=== PATIENT | female | born 1985 | race Asian ===

== ENCOUNTER 2022-03-15 18:22 | Emergency (ER) | payer MEDICAID, OTHER ==
[~2022-03-15] VITALS: Ht 165.1 cm; Wt 54.5 kg
[2022-03-15] MEDS ORDERED: EPINEPHrine 1:1,000 [1 MG/ML] VIAL IM ONE (18:30)
[2022-03-15] MEDS ORDERED: MethylPREDNISolone SOD SUCC 125 MG/2 ML VIAL IVP ONE (18:30)
[2022-03-15] MEDS ORDERED: SODIUM CHLORIDE 0.9% 1,000 ML IV ONE (18:30)
[2022-03-15 18:46] LABS: BASOPHILS % (AUTO) 0.7 % (0.0-2.0); EOSINOPHILS % (AUTO) 3.8 % (1.0-6.0); HEMOGLOBIN 13.6 g/dL (12.0-16.0); LYMPHOCYTES # (AUTO) 2.5 K/uL (1.0-4.8); LYMPHOCYTES % (AUTO) 26.7 % (22.0-44.0); MEAN CORPUSCULAR HEMOGLOBIN 34.2 pg (26.0-34.0); MEAN CORPUSCULAR HGB CONC 34.8 G/dL (31.0-37.0); MEAN CORPUSCULAR VOLUME 98 fL (80-100); MONOCYTES # (AUTO) 0.7 K/uL (0.1-1.0); MONOCYTES % (AUTO) 7.7 % (2.0-9.0); NEUTROPHILS # (AUTO) 5.7 K/uL (1.8-7.7); NEUTROPHILS % (AUTO) 61.1 % (40.0-70.0); PLATELET COUNT (AUTO) 408 K/uL (150-450); RED BLOOD CELL COUNT(AUTO) 3.97 MIL/uL (4.00-5.20); RED CELL DISTRIBUTION WIDTH 13.4 % (11.5-14.5)
[2022-03-15] MEDS ORDERED: LINA72CA PO (18:51)
[2022-03-15] MEDS ORDERED: POLY17PO47 PO (18:51)
[2022-03-15] MEDS ORDERED: NADO20 PO (18:51)
[2022-03-15] MEDS ORDERED: PREG25 PO (18:51)
[2022-03-15] MEDS ORDERED: NIMO30CA PO (18:51)
[2022-03-15] MEDS ORDERED: CYCL-448 PO (18:51)
[2022-03-15] MEDS ORDERED: BOTU100I IM (18:51)
[2022-03-15] MEDS ORDERED: ALBU2TAB42 PO (18:51)
[2022-03-15] MEDS ORDERED: INDO-16 PO (18:51)
[2022-03-15] MEDS ORDERED: FLUT1BLS8 IH (18:51)
[2022-03-15 18:55] LABS: ANION GAP 3 mmol/L (8-16); CALCIUM, TOTAL 8.8 mg/dL (8.8-10.5); CARBON DIOXIDE 32 mmol/L (22-29); CHLORIDE 103 mmol/L (98-107); CREATININE 0.81 mg/dL (0.60-1.30); GLOMERULAR FILTR. RATE CALC > 60 mL/min (>60); GLUCOSE,RANDOM 73 mg/dL (70-110); POTASSIUM 3.9 mmol/L (3.5-5.1); SODIUM SERUM 138 mmol/L (136-145); UREA NITROGEN, BLOOD 9 mg/dL (7-18)
[2022-03-15 19:01] LABS: ALANINE AMINOTRANSFERASE 27 U/L (12-78); ALBUMIN 4.1 g/dL (3.4-5.0); ALKALINE PHOSPHATASE 56 U/L (46-116); ASPARTATE AMINOTRANSFERASE 17 U/L (15-37); BILIRUBIN,TOTAL 0.3 mg/dL (0.1-1.0); TOTAL PROTEIN, SERUM 7.5 g/dL (6.4-8.2)
[2022-03-15] MEDS ORDERED: ONDANSETRON HCL 4 MG/2 ML VIAL IVP ONE (19:15)
[2022-03-15 19:46] LABS: GLUCOSE,POINT OF CARE 114 MG/DL (70-110)
[2022-03-15 21:53] VITALS: BP 108/68
[2022-03-15] MEDS ORDERED: EPIN0.3P3 IM (21:59)
[2022-03-15] MEDS ORDERED: PRED-554 PO (21:59)
== END 2022-03-15 22:11 | disposition home or self-care (01) ==
LOC: EMS 18:22
DX: T78.1XXA Other adverse food reactions, not elsewhere classified, initial encounter (principal); X58.XXXA Exposure to other specified factors, initial encounter
CPT/HCPCS: 99284; 96374; 96361; 96375; 80053; 82962; 85025; 36415; 96372; J2930; J2405